=== PATIENT | male | born 1980 | race Caucasian/White ===

== ENCOUNTER 2016-10-31 05:22 | Day surgery (SDC) | payer BC ==
[~2016-10-31] VITALS: Ht 170.2 cm; Wt 86.2 kg
[~2016-10-31 05:22] MED LIST: DAILY MULTIPLE1 EAC2 PO
[2016-10-31 06:41] VITALS: BP 109/72
[2016-10-31] MEDS ORDERED: NORCO 5/3251 TABLET PO (09:15)
[2016-10-31 10:26] VITALS: BP 124/86
[2016-10-31 11:40] VITALS: BP 114/66
[2016-10-31 12:42] VITALS: BP 128/68
== END 2016-10-31 12:50 | disposition home or self-care (01) ==
LOC: SDC 05:22
PROC: 0YU50JZ Supplement Right Inguinal Region with Synthetic Substitute, Open Approach (ICD-10-PCS; principal; 2016-10-31)
DX: K40.90 Unilateral inguinal hernia, without obstruction or gangrene, not specified as recurrent (principal); E66.9 Obesity, unspecified; Z68.30 Body mass index [BMI] 30.0-30.9, adult
CPT/HCPCS: C1781; J0690; J1170; J1885; J2250; J2405; J3010; S0020